=== PATIENT | female | born 1940 | race Asian ===

== ENCOUNTER 2019-07-20 19:27 | Inpatient (IN) | payer MEDICARE ==
[2019-07-20 20:59] LABS: Hematocrit 32.8 % (30.3-42.9); Hemoglobin 10.6 gm/dl (10.1-14.3); Mean Corpuscular HGB Conc 32 % (30-34); Mean Corpuscular Volume 108 fl (79-97); Platelet Count 100 K/mm3 (140-440); Red Blood Count 3.04 M/mm3 (3.65-5.03); Red Cell Distribution Width 15.6 % (13.2-15.2)
[2019-07-20 21:08] LABS: INR 1.05 (0.87-1.13)
[2019-07-20 21:14] LABS: Calcium 7.1 mg/dL (8.4-10.2)
[2019-07-20] MEDS ORDERED: SODIUM CHLORIDE 0.9% 100 ML IV PRN (21:23)
[2019-07-20] MEDS ORDERED: ACETAMINOPHEN 325 MG TAB PO PRN (21:42)
[2019-07-20] MEDS ORDERED: MAGNESIUM HYDROXIDE (MOM) ORAL LIQD UDC PO PRN (21:42)
[2019-07-20] MEDS ORDERED: DEXTROSE 50% IN WATER (25GM) 50 ML SYRINGE IV PRN (21:42)
[2019-07-20] MEDS ORDERED: ONDANSETRON 4 MG/2 ML INJ IV PRN (21:42)
[2019-07-20] MEDS: INSULIN LISPRO 100 UNIT/ML SUB-Q SCH (23:14)
[2019-07-21] MEDS ORDERED: SODIUM CHLORIDE 0.9% 250ML 250 ML IV ONE (03:43)
[2019-07-21 05:51] LABS: Basophils % (Auto) 0.7 % (0.0-1.8); Eosinophils # (Auto) 0.2 K/mm3 (0.0-0.4); Eosinophils % (Auto) 5.4 % (0.0-4.3); Hemoglobin 9.9 gm/dl (10.1-14.3); Lymphocytes # (Auto) 0.8 K/mm3 (1.2-5.4); Lymphocytes % (Auto) 22.6 % (13.4-35.0); Mean Corpuscular HGB Conc 33 % (30-34); Mean Corpuscular Volume 106 fl (79-97); Monocytes # (Auto) 0.5 K/mm3 (0.0-0.8); Monocytes % (Auto) 15.6 % (0.0-7.3); Red Blood Count 2.82 M/mm3 (3.65-5.03); Red Cell Distribution Width 15.7 % (13.2-15.2)
[2019-07-21 05:54] LABS: Platelet Count 87 K/mm3 (140-440)
[2019-07-21 05:58] LABS: INR 1.05 (0.87-1.13)
[2019-07-21 06:04] LABS: Calcium 6.7 mg/dL (8.4-10.2)
[2019-07-21] MEDS: HEPARIN 5,000 UNIT/1 ML VIAL SUB-Q SCH ×3 (06:10→22:01)
[2019-07-21] MEDS: LEVOTHYROXINE 100 MCG TAB PO SCH (06:55)
[2019-07-21] MEDS: INSULIN LISPRO 100 UNIT/ML SUB-Q SCH ×4 (07:30→22:54)
[2019-07-21] MEDS: QUEtiapine 25 MG TAB PO SCH ×2 (09:06→22:00)
[2019-07-21] MEDS: MIDODRINE 5 MG TAB PO SCH ×3 (09:06→16:00)
[2019-07-21 13:32] LABS: Hepatitis B Surface Antigen Non-Reactive (Negative); Hepatitis C Virus Antibody Non-Reactive (NonReactive)
[2019-07-21] MEDS: DONEPEZIL 5 MG TAB PO SCH (22:00)
[2019-07-22] MEDS: HEPARIN 5,000 UNIT/1 ML VIAL SUB-Q SCH ×4 (05:18→22:40)
[2019-07-22] MEDS: LEVOTHYROXINE 100 MCG TAB PO SCH (05:19)
[2019-07-22] MEDS: QUEtiapine 25 MG TAB PO SCH ×4 (05:22→22:40)
[2019-07-22] MEDS: DONEPEZIL 5 MG TAB PO SCH ×2 (06:47→22:39)
[2019-07-22] MEDS: INSULIN LISPRO 100 UNIT/ML SUB-Q SCH ×4 (09:37→22:22)
[2019-07-22] MEDS: MIDODRINE 5 MG TAB PO SCH ×3 (09:41→13:01)
[2019-07-23] MEDS: LEVOTHYROXINE 100 MCG TAB PO SCH (06:17)
[2019-07-23] MEDS: HEPARIN 5,000 UNIT/1 ML VIAL SUB-Q SCH ×3 (06:17→22:02)
[2019-07-23] MEDS: INSULIN LISPRO 100 UNIT/ML SUB-Q SCH ×3 (07:52→22:02)
[2019-07-23] MEDS: MIDODRINE 5 MG TAB PO SCH ×3 (08:48→17:10)
[2019-07-23] MEDS: QUEtiapine 25 MG TAB PO SCH ×2 (09:59→22:02)
[2019-07-23] MEDS: DONEPEZIL 5 MG TAB PO SCH (22:02)
[2019-07-24] MEDS: LEVOTHYROXINE 100 MCG TAB PO SCH (06:26)
[2019-07-24] MEDS: HEPARIN 5,000 UNIT/1 ML VIAL SUB-Q SCH ×2 (06:26→17:04)
[2019-07-24] MEDS: INSULIN LISPRO 100 UNIT/ML SUB-Q SCH ×3 (08:16→17:05)
[2019-07-24] MEDS: MIDODRINE 5 MG TAB PO SCH ×3 (09:39→17:04)
[2019-07-24] MEDS: QUEtiapine 25 MG TAB PO SCH (09:40)
[2019-07-24 16:35] VITALS: BP 123/64
== END 2019-07-24 17:00 | DRG 682 ==
LOC: ED 19:27 → IMCU 21:25 → 3A 07-22 10:23 → OBSVTOIN 07-22 10:58
PROVIDERS: ADMIT Internal Medicine Geriatric Medicine; ATTEND Internal Medicine
PROC: 5A1D70Z Performance of Urinary Filtration, Intermittent, Less than 6 Hours Per Day (ICD-10-PCS; principal; 2019-07-21)
PROC: 5A1D70Z Performance of Urinary Filtration, Intermittent, Less than 6 Hours Per Day (ICD-10-PCS; 2019-07-23)
DX: I12.0 Hypertensive chronic kidney disease with stage 5 chronic kidney disease or end stage renal disease (principal); N18.6 End stage renal disease; I95.9 Hypotension, unspecified; Z91.19 Patient's noncompliance with other medical treatment and regimen; Z88.0 Allergy status to penicillin; E11.22 Type 2 diabetes mellitus with diabetic chronic kidney disease; Z99.2 Dependence on renal dialysis; Z91.15 Patient's noncompliance with renal dialysis; Z79.4 Long term (current) use of insulin; F03.90 Unspecified dementia, unspecified severity, without behavioral disturbance, psychotic disturbance, mood disturbance, and anxiety; E11.21 Type 2 diabetes mellitus with diabetic nephropathy; Z88.6 Allergy status to analgesic agent; Z88.8 Allergy status to other drugs, medicaments and biological substances
CPT/HCPCS: 36415; 71045; 80048; 80074; 82550; 82962; 83735; 83880; 85025; 85027; 85610; 93005; G0378; J1644; J7030; J7040; J7050

== ENCOUNTER 2019-07-28 19:19 | Inpatient (IN) | payer MEDICARE ==
--- NOTE | 2019-07-28 19:48 | Emergency Department Report ---
ED Altered Mental Status HPI - General Chief Complaint: Medical Clearance Stated Complaint: EVALUATION Time Seen by Provider: 07/28/19 19:37 Source: EMS Mode of arrival: Stretcher Limitations: Other - History of Present Illness Initial Comments: Patient is 79 years old female with history of dementia, hypertension, diabetes and end-stage renal disease on hemodialysis. Patient brought from [facility] for evaluation of decreased responsiveness. EMS stated that initial call came as cardiac arrest and when they arrived at the facility, fpc staff were doing CPR on the patient however the patient is yelling at them to stop. EMS stated that patient became very agitated and combative. Upon arrival to the ER, patient is alert but disoriented in place and person. Patient just kept mumbling words however patient moving her extremities well. MD Complaint: altered mental status, confusion, decreased responsiveness - Related Data Home Medications Medication Instructions Recorded Confirmed Last Taken Ascorbic Acid 250 mg PO TID 07/20/19 07/20/19 Unknown Ativan 0.5 mg PO Q12HR 07/20/19 07/20/19 Unknown Levothyroxine 100 mcg PO ONCE 07/20/19 07/20/19 Unknown Melatonin 3 mg PO QHS 07/20/19 07/20/19 Unknown Midodrine 10 mg PO TID 07/20/19 07/20/19 Unknown Namenda Xr 5 mg PO ONCE 07/20/19 07/20/19 Unknown SEROquel 50 mg PO BID 07/20/19 07/20/19 Unknown Tylenol 325 mg PO Q6HR 07/20/19 07/20/19 Unknown donepeziL 5 mg PO DAILY 07/20/19 07/20/19 Unknown Allergies Allergy/AdvReac Type Severity Reaction Status Date / Time Penicillins Allergy Unknown Unknown Verified 07/20/19 21:49 Celecoxib Allergy Unknown Unknown Uncoded 07/20/19 21:52 Liptor Allergy Unknown Unknown Uncoded 07/20/19 21:51 ED Review of Systems ROS: Stated complaint: EVALUATION Other details as noted in HPI Comment: Unobtainable due to pts medical conditions ED Past Medical Hx - Past Medical History Hx Hypertension: Yes Hx Congestive Heart Failure: Yes Hx Diabetes: Yes Hx Dementia: Yes Additional medical history: ESRD Dialysis days on Thursday//Thursday. - Social History Smoking Status: Never Smoker - Medications Home Medications: Home Medications Medication Instructions Recorded Confirmed Last Taken Type Ascorbic Acid 250 mg PO TID 07/20/19 07/20/19 Unknown History Ativan 0.5 mg PO Q12HR 07/20/19 07/20/19 Unknown History Levothyroxine 100 mcg PO ONCE 07/20/19 07/20/19 Unknown History Melatonin 3 mg PO QHS 07/20/19 07/20/19 Unknown History Midodrine 10 mg PO TID 07/20/19 07/20/19 Unknown History Namenda Xr 5 mg PO ONCE 07/20/19 07/20/19 Unknown History SEROquel 50 mg PO BID 07/20/19 07/20/19 Unknown History Tylenol 325 mg PO Q6HR 07/20/19 07/20/19 Unknown History donepeziL 5 mg PO DAILY 07/20/19 07/20/19 Unknown History ED Physical Exam - General Limitations: Altered Mental Status, Other General appearance: alert, in no apparent distress - Head Head exam: Present: atraumatic, normocephalic, normal inspection - Eye Eye exam: Present: normal appearance - ENT ENT exam: Present: normal exam, normal orophraynx, mucous membranes moist - Neck Neck exam: Present: normal inspection, full ROM. Absent: tenderness, meni ngismus - Respiratory Respiratory exam: Present: normal lung sounds bilaterally - Cardiovascular Cardiovascular Exam: Present: regular rate, normal rhythm, normal heart sounds - GI/Abdominal GI/Abdominal exam: Present: soft, normal bowel sounds. Absent: distended, tenderness, guarding, rebound, rigid, organomegaly, bruit, pulsatile mass, hernia - Extremities Exam Extremities exam: Present: normal inspection, full ROM, normal capillary refill. Absent: calf tenderness - Back Exam Back exam: Present: normal inspection, full ROM. Absent: CVA tenderness (R), CVA tenderness (L) - Neurological Exam Neurological exam: Present: alert, altered, CN II-XII intact. Absent: motor sensory deficit - Psychiatric Psychiatric exam: Present: agitated, anxious - Skin Skin exam: Present: warm, intact, normal color ED Course Vital Signs 07/28/19 07/28/19 07/28/19 19:32 20:29 21:26 Temperature 97.9 F Pulse Rate 81 74 68 Respiratory 13 12 14 Rate Blood Pressure 117/66 97/45 82/50 [Right] O2 Sat by Pulse 99 97 100 Oximetry 07/28/19 21:58 Temperature Pulse Rate 65 Respiratory 12 Rate Blood Pressure 104/53 [Right] O2 Sat by Pulse 99 Oximetry - Lab Data Result diagrams: 07/29/19 14:36 07/29/19 14:36 Lab Results 07/28/19 07/28/19 07/28/19 Range/Units 19:45 19:45 19:45 WBC 3.9 L (4.5-11.0) K/mm3 RBC 2.42 L (3.65-5.03) M/mm3 Hgb 8.4 L (10.1-14.3) gm/dl Hct 25.9 L (30.3-42.9) % MCV 107 H (79-97) fl MCH 35 H (28-32) pg MCHC 32 (30-34) % RDW 15.0 (13.2-15.2) % Plt Count 133 L (140-440) K/mm3 Lymph % (Auto) 11.7 L (13.4-35.0) % [place] % (Auto) 10.5 H (0.0-7.3) % Eos % (Auto) 3.1 (0.0-4.3) % Baso % (Auto) 0.6 (0.0-1.8) % Lymph # 0.5 L (1.2-5.4) K/mm3 [place] # 0.4 (0.0-0.8) K/mm3 Eos # 0.1 (0.0-0.4) K/mm3 Baso # 0.0 (0.0-0.1) K/mm3 Seg Neutrophils % 74.1 H (40.0-70.0) % Seg Neutrophils # 2.9 (1.8-7.7) K/mm3 PT 13.6 (12.2-14.9) Sec. INR 1.06 (0.87-1.13) APTT 29.7 (24.2-36.6) Sec. Sodium 138 (137-145) mmol/L Potassium 3.7 (3.6-5.0) mmol/L Chloride 92.0 L (98-107) mmol/L Carbon Dioxide 24 (22-30) mmol/L Anion Gap 26 mmol/L BUN 39 H (7-17) mg/dL Creatinine 11.3 H (0.7-1.2) mg/dL Estimated GFR 3 ml/min BUN/Creatinine Ratio 3 % Glucose 148 H (65-100) mg/dL Lactic Acid (0.7-2.0) mmol/L Calcium 7.8 L (8.4-10.2) mg/dL Total Bilirubin (0.1-1.2) mg/dL Direct Bilirubin (0-0.2) mg/dL Indirect Bilirubin mg/dL AST (5-40) units/L ALT (7-56) units/L Alkaline Phosphatase (35-129) units/L Ammonia (25-60) umol/L Total Creatine Kinase 102 (30-135) units/L Troponin T 0.088 H (0.00-0.029) ng/mL Total Protein (6.3-8.2) g/dL Albumin (3.9-5) g/dL Albumin/Globulin Ratio % Triglycerides 151 H (2-149) mg/dL Cholesterol 172 (50-199) mg/dL LDL Cholesterol Direct 93 (50-130) mg/dL HDL Cholesterol 50 (40-59) mg/dL Cholesterol/HDL Ratio 3.44 % 07/28/19 07/28/19 07/28/19 Range/Units 19:45 19:45 19:45 WBC (4.5-11.0) K/mm3 RBC (3.65-5.03) M/mm3 Hgb (10.1-14.3) gm/dl Hct (30.3-42.9) % MCV (79-97) fl MCH (28-32) pg MCHC (30-34) % RDW (13.2-15.2) % Plt Count (140-440) K/mm3 Lymph % (Auto) (13.4-35.0) % [place] % (Auto) (0.0-7.3) % Eos % (Auto) (0.0-4.3) % Baso % (Auto) (0.0-1.8) % Lymph # (1.2-5.4) K/mm3 [place] # (0.0-0.8) K/mm3 Eos # (0.0-0.4) K/mm3 Baso # (0.0-0.1) K/mm3 Seg Neutrophils % (40.0-70.0) % Seg Neutrophils # (1.8-7.7) K/mm3 PT (12.2-14.9) Sec. INR (0.87-1.13) APTT (24.2-36.6) Sec. Sodium (137-145) mmol/L Potassium (3.6-5.0) mmol/L Chloride (98-107) mmol/L Carbon Dioxide (22-30) mmol/L Anion Gap mmol/L BUN (7-17) mg/dL Creatinine (0.7-1.2) mg/dL Estimated GFR ml/min BUN/Creatinine Ratio % Glucose (65-100) mg/dL Lactic Acid 2.80 H* (0.7-2.0) mmol/L Calcium (8.4-10.2) mg/dL Total Bilirubin 0.70 (0.1-1.2) mg/dL Direct Bilirubin 0.3 H (0-0.2) mg/dL Indirect Bilirubin 0.4 mg/dL AST 19 (5-40) units/L ALT 11 (7-56) units/L Alkaline Phosphatase 69 (35-129) units/L Ammonia 22.0 L (25-60) umol/L Total Creatine Kinase (30-135) units/L Troponin T (0.00-0.029) ng/mL Total Protein 7.2 (6.3-8.2) g/dL Albumin 3.8 L (3.9-5) g/dL Albumin/Globulin Ratio 1.1 % Triglycerides (2-149) mg/dL Cholesterol (50-199) mg/dL LDL Cholesterol Direct (50-130) mg/dL HDL Cholesterol (40-59) mg/dL Cholesterol/HDL Ratio % - Radiology Data Radiology results: report reviewed - Medical Decision Making Patient is 79 years old female with history of dementia, hypertension, diabetes and end-stage renal disease on hemodialysis. Patient brought from [facility] for evaluation of decreased responsiveness. EMS stated that initial call came as cardiac arrest and when they arrived at the facility, fpc staff were doing CPR on the patient however the patient is yelling at them to stop. EMS stated that patient became very agitated and combative. Upon arrival to the ER, patient is alert but disoriented in place and person. Patient just kept mumbling words however patient moving her extremities well. Patient is sleeping comfortably now and in no acute distress. Patient received 500 mL of normal saline bolus. Labs reviewed and showed a potassium of 3.7. I discussed the patient with Dr. Murry, programmer numerical control on-call, he agreed to be consulted and the patient. I discussed the patient with Dr. Washington, he agreed to admit the patient to medical service for further management. Critical Care Time: Yes Critical care time in (mins) excluding proc time.: 30 Critical care attestation.: If time is entered above; I have spent that time in minutes in the direct care of this critically ill patient, excluding procedure time. ED Disposition Clinical Impression: Hypotension, Missed dialysis, Dementia, Altered mental status Disposition: DC-09 OP ADMIT IP TO THIS HOSP Is pt being admited?: Yes Condition: Stable
[2019-07-28] MEDS ORDERED: LORazepam 2 MG/ML VIAL ONE (20:04)
[2019-07-28 20:19] LABS: Basophils % (Auto) 0.6 % (0.0-1.8); Eosinophils # (Auto) 0.1 K/mm3 (0.0-0.4); Eosinophils % (Auto) 3.1 % (0.0-4.3); Hematocrit 25.9 % (30.3-42.9); Hemoglobin 8.4 gm/dl (10.1-14.3); Lymphocytes # (Auto) 0.5 K/mm3 (1.2-5.4); Lymphocytes % (Auto) 11.7 % (13.4-35.0); Mean Corpuscular HGB Conc 32 % (30-34); Mean Corpuscular Volume 107 fl (79-97); Monocytes # (Auto) 0.4 K/mm3 (0.0-0.8); Monocytes % (Auto) 10.5 % (0.0-7.3); Platelet Count 133 K/mm3 (140-440); Red Blood Count 2.42 M/mm3 (3.65-5.03)
[2019-07-28 20:26] LABS: INR 1.06 (0.87-1.13)
[2019-07-28 20:27] LABS: Partial Thromboplastin Time 29.7 Sec. (24.2-36.6)
[2019-07-28 20:36] LABS: Albumin 3.8 g/dL (3.9-5); Bilirubin,Direct 0.3 mg/dL (0-0.2)
[2019-07-28 20:38] LABS: Calcium 7.8 mg/dL (8.4-10.2)
[2019-07-28] MEDS ORDERED: LORazepam 2 MG/ML VIAL IM ONE (20:51)
[2019-07-28] MEDS ORDERED: SODIUM CHLORIDE 0.9% 500 ML 500 ML IV ONE (20:51)
[2019-07-28 20:53] LABS: Chol/HDL Ratio 3.44 %
--- NOTE | 2019-07-28 21:24 | XRay Report ---
CHEST 1 VIEW INDICATION / CLINICAL INFORMATION: AMS. COMPARISON: 07/20/2019 FINDINGS: SUPPORT DEVICES: None. HEART / MEDIASTINUM: Unchanged LUNGS / PLEURA: There is mild increase in interstitial markings bilaterally. No pneumothorax. ADDITIONAL FINDINGS: No significant additional findings. IMPRESSION: 1. No significant change. Signer Name: Crow You MD Signed: 07/28/2019 9:19 PM Workstation Name: [email or web address]
[2019-07-28] MEDS ORDERED: MAGNESIUM HYDROXIDE (MOM) ORAL LIQD UDC PO PRN (22:11)
[2019-07-28] MEDS ORDERED: DEXTROSE 50% IN WATER (25GM) 50 ML SYRINGE IV PRN (22:11)
[2019-07-28] MEDS ORDERED: ONDANSETRON 4 MG/2 ML INJ IV PRN (22:11)
[2019-07-28] MEDS ORDERED: ACETAMINOPHEN 325 MG TAB PO PRN (22:11)
--- NOTE | 2019-07-28 22:22 | History and Physical Report ---
History of Present Illness Date of examination: 07/28/19 Date of admission: 07/28/19 21:38 Chief complaint: Altered Mental Status History of present illness: 79-year-old -[place] female with known history of hypertension, dementia, diabetes mellitus and end-stage renal disease on hemodialysis on Tuesdays, and Saturdays. She is a resident of [facility] was sent to the emergency room today for evaluation of her decreased responsiveness. CPR was said to have been initiated on patient because they thought she was in cardiac arrest but upon arrival of EMS patient was found to be yelling at the [facility] staff and CPR was discontinued. Patient was said to be agitated, combative and disoriented. Patient has not had a dialysis in about a week and it is unclear why patient has not had dialysis in 1 week. She presented with a similar episode about a week ago. Patient discussed with the abatement worker and she will be scheduled for dialysis in the a.m. Past History Past Medical History: diabetes, hypertension, other (Dementia) Past Surgical History: Other (Left upper extremity AV fistula) Social history: no significant social history Family history: no significant family history Medications and Allergies Allergies Allergy/AdvReac Type Severity Reaction Status Date / Time Penicillins Allergy Unknown Unknown Verified 07/20/19 21:49 Celecoxib Allergy Unknown Unknown Uncoded 07/20/19 21:52 Liptor Allergy Unknown Unknown Uncoded 07/20/19 21:51 Home Medications Medication Instructions Recorded Confirmed Last Taken Type Ascorbic Acid 250 mg PO TID 07/20/19 07/20/19 Unknown History Ativan 0.5 mg PO Q12HR 07/20/19 07/20/19 Unknown History Levothyroxine 100 mcg PO ONCE 07/20/19 07/20/19 Unknown History Melatonin 3 mg PO QHS 07/20/19 07/20/19 Unknown History Midodrine 10 mg PO TID 07/20/19 07/20/19 Unknown History Namenda Xr 5 mg PO ONCE 07/20/19 07/20/19 Unknown History SEROquel 50 mg PO BID 07/20/19 07/20/19 Unknown History Tylenol 325 mg PO Q6HR 07/20/19 07/20/19 Unknown History donepeziL 5 mg PO DAILY 07/20/19 07/20/19 Unknown History Active Meds: Active Medications Acetaminophen (Tylenol) 650 mg PO Q4H PRN PRN Reason: Pain MILD(1-3)/Fever >100.5/DE LA PAZ Dextrose (D50w (25gm) Syringe) 0 ml IV Q30MIN PRN; Protocol PRN Reason: Hypoglycemia Insulin Human Lispro (Humalog) 0 unit SUB-Q ACHS FAUZIA; Protocol Magnesium Hydroxide (Milk Of Magnesia) 30 ml PO Q4H PRN PRN Reason: Constipation Ondansetron HCl (Zofran) 4 mg IV Q8H PRN PRN Reason: Nausea And Vomiting Sodium Chloride (Sodium Chloride Flush Syringe 10 Ml) 10 ml IV BID FAUZIA Sodium Chloride (Sodium Chloride Flush Syringe 10 Ml) 10 ml IV PRN PRN PRN Reason: LINE FLUSH Review of Systems ROS unobtainable: due to mental status Exam - Constitutional Vitals: Temp Pulse Resp BP Pulse Ox 97.9 F 65 12 104/53 99 07/28/19 19:32 07/28/19 21:58 07/28/19 21:58 07/28/19 21:58 07/28/19 21:58 General appearance: Present: no acute distress, well-nourished - EENT Eyes: Present: PERRL, EOM intact. Absent: scleral icterus ENT: hearing intact, clear oral mucosa, dentition normal - Neck Neck: Present: supple, normal ROM - Respiratory Respiratory effort: normal Respiratory: bilateral: CTA - Cardiovascular Rhythm: regular Heart Sounds: Present: S1 & S2 - Extremities Extremities: no ischemia, pulses intact, pulses symmetrical, No edema, Full ROM Peripheral Pulses: within normal limits - Abdominal General gastrointestinal: Present: soft, non-tender, non-distended, normal bowel sounds - Integumentary Integumentary: Present: clear, warm, dry. Absent: jaundice, rash - Musculoskeletal Musculoskeletal: strength equal bilaterally - Psychiatric Psychiatric: appropriate mood/affect, cooperative - Neurologic Neurologic: CNII-XII intact, moves all extremities HEART Score - HEART Score Troponin: Troponin T 0.088 ng/mL (0.00-0.029) H 07/28/19 19:45 Results - Labs CBC & Chem 7: 07/28/19 19:45 07/28/19 19:45 Labs: Abnormal lab results 07/28/19 07/28/19 07/28/19 Range/Units 19:45 19:45 19:45 WBC 3.9 L (4.5-11.0) K/mm3 RBC 2.42 L (3.65-5.03) M/mm3 Hgb 8.4 L (10.1-14.3) gm/dl Hct 25.9 L (30.3-42.9) % MCV 107 H (79-97) fl MCH 35 H (28-32) pg Plt Count 133 L (140-440) K/mm3 Lymph % (Auto) 11.7 L (13.4-35.0) % [place] % (Auto) 10.5 H (0.0-7.3) % Lymph # 0.5 L (1.2-5.4) K/mm3 Seg Neutrophils % 74.1 H (40.0-70.0) % Chloride 92.0 L (98-107) mmol/L BUN 39 H (7-17) mg/dL Creatinine 11.3 H (0.7-1.2) mg/dL Glucose 148 H (65-100) mg/dL Lactic Acid 2.80 H* (0.7-2.0) mmol/L Calcium 7.8 L (8.4-10.2) mg/dL Direct Bilirubin (0-0.2) mg/dL Ammonia (25-60) umol/L Troponin T 0.088 H (0.00-0.029) ng/mL Albumin (3.9-5) g/dL Triglycerides 151 H (2-149) mg/dL 07/28/19 07/28/19 Range/Units 19:45 19:45 WBC (4.5-11.0) K/mm3 RBC (3.65-5.03) M/mm3 Hgb (10.1-14.3) gm/dl Hct (30.3-42.9) % MCV (79-97) fl MCH (28-32) pg Plt Count (140-440) K/mm3 Lymph % (Auto) (13.4-35.0) % [place] % (Auto) (0.0-7.3) % Lymph # (1.2-5.4) K/mm3 Seg Neutrophils % (40.0-70.0) % Chloride (98-107) mmol/L BUN (7-17) mg/dL Creatinine (0.7-1.2) mg/dL Glucose (65-100) mg/dL Lactic Acid (0.7-2.0) mmol/L Calcium (8.4-10.2) mg/dL Direct Bilirubin 0.3 H (0-0.2) mg/dL Ammonia 22.0 L (25-60) umol/L Troponin T (0.00-0.029) ng/mL Albumin 3.8 L (3.9-5) g/dL Triglycerides (2-149) mg/dL Assessment and Plan - Patient Problems (1) ESRD (end stage renal disease) Current Visit: No Status: Acute Plan to address problem: Patient has missed her dialysis for about a week. She gets dialysis on Tuesdays, and Saturdays. Patient will be evaluated for dialysis in the a.m. consulted. (2) Altered mental status Current Visit: Yes Status: Acute Plan to address problem: May be multifactorial. She has known history of dementia and has not had dialysis in about a week. We will continue to monitor mental status. Patient is scheduled for dialysis in the a.m. (3) Dementia Current Visit: Yes Status: Acute Plan to address problem: We will continue patient's routine home medications. Will monitor mental status. (4) Hypotension Current Visit: Yes Status: Acute Plan to address problem: Patient received IV fluid in the emergency room with significant improvement in blood pressure. (5) Diabetes mellitus Current Visit: No Status: Acute Qualifiers: Chronic kidney disease stage: on chronic dialysis Plan to address problem: We will monitor Accu-Cheks and resume routine home medications. (6) DVT prophylaxis Current Visit: No Status: Acute Plan to address problem: Patient placed on subcutaneous heparin. (7) Full code status Current Visit: No Status: Acute
[2019-07-29] MEDS: INSULIN LISPRO 100 UNIT/ML SUB-Q SCH ×4 (08:00→22:29)
--- NOTE | 2019-07-29 08:05 | Consultation ---
History of Present Illness - Reason for Consult Consult date: 07/29/19 end stage renal disease - History of Present Illness The patient is an 79 YO female with history significant for DM type 2, Hypotension on Midodrine, Hypothyroid, Dementia and ESRD on hemodialysis (TTS schedule) reportedly dialyzed at [facility] in [place], who presented to [facility] ED 07/27 after she has missed her dialysis for about a week. Patient is a very poor historian and unable to obtain any history from her at this time. Not accompanied by any family member. She resides in a snf and it is unclear why patient missed her dialysis. CXR in ER showed mild increase in interstitial markings. BP this morning is 90/35. Nephrology was consulted for management of ESRD. Past History Past Medical History: diabetes, dialysis, ESRD, hypothyroidism, other (Hypotension, Dementia) Past Surgical History: Other (Left upper extremity AV fistula) Social history: no significant social history Family history: no significant family history Medications and Allergies Allergies Allergy/AdvReac Type Severity Reaction Status Date / Time Penicillins Allergy Unknown Unknown Verified 07/20/19 21:49 Celecoxib Allergy Unknown Unknown Uncoded 07/20/19 21:52 Liptor Allergy Unknown Unknown Uncoded 07/20/19 21:51 Home Medications Medication Instructions Recorded Confirmed Last Taken Type Ascorbic Acid 250 mg PO TID 07/20/19 07/20/19 Unknown History Ativan 0.5 mg PO Q12HR 07/20/19 07/20/19 Unknown History Levothyroxine 100 mcg PO ONCE 07/20/19 07/20/19 Unknown History Melatonin 3 mg PO QHS 07/20/19 07/20/19 Unknown History Midodrine 10 mg PO TID 07/20/19 07/20/19 Unknown History Namenda Xr 5 mg PO ONCE 07/20/19 07/20/19 Unknown History SEROquel 50 mg PO BID 07/20/19 07/20/19 Unknown History Tylenol 325 mg PO Q6HR 07/20/19 07/20/19 Unknown History donepeziL 5 mg PO DAILY 07/20/19 07/20/19 Unknown History Active Meds: Active Medications Acetaminophen (Tylenol) 650 mg PO Q4H PRN PRN Reason: Pain MILD(1-3)/Fever >100.5/DE LA PAZ Dextrose (D50w (25gm) Syringe) 0 ml IV Q30MIN PRN; Protocol PRN Reason: Hypoglycemia Heparin Sodium (Porcine) (Heparin) 5,000 unit SUB-Q Q8HR FAUZIA Insulin Human Lispro (Humalog) 0 unit SUB-Q ACHS FAUZIA; Protocol Magnesium Hydroxide (Milk Of Magnesia) 30 ml PO Q4H PRN PRN Reason: Constipation Ondansetron HCl (Zofran) 4 mg IV Q8H PRN PRN Reason: Nausea And Vomiting Sodium Chloride (Sodium Chloride Flush Syringe 10 Ml) 10 ml IV BID FAUZIA Sodium Chloride (Sodium Chloride Flush Syringe 10 Ml) 10 ml IV PRN PRN PRN Reason: LINE FLUSH Review of Systems ROS unobtainable: due to mental status Exam - Vital Signs Vital signs: Vital Signs Temp Pulse Resp BP Pulse Ox 97.9 F 81 11 L 117/66 99 07/28/19 19:32 07/28/19 19:32 07/28/19 19:32 07/28/19 19:32 07/28/19 19:32 - General Appearance General appearance: well-developed, appears stated age, other (no distress) EENT: ATNC, PERRL, mucous membranes dry Neck: Present: neck supple, trachea midline Respiratory: Clear to Ascultation Heart: regular, S1S2, no murmurs Gastrointestinal: Present: normoactive bowel sounds. Absent: tenderness, distended Integumentary: no rash, warm and dry Neurologic: other (moving extremities, not conversing, not following any command) Musculoskeletal: Present: other (no edema, L arm AVF) Results - Lab Results 07/29/19 14:36 07/29/19 14:36 Most recent lab results Calcium 7.8 mg/dL (8.4-10.2) L 07/28/19 19:45 Assessment and Plan 1. End stage renal disease: Patient reportedly gets hemodialysis at [facility], [facility] schedule. Missed HD due to medical non-compliance. Meds dosage based on GFR. BP is low, hold off HD today. 2. FEN: Monitor lytes and volume status. 3. Anemia, POA: Epogen with HD as needed. 4. Hypotension: Resume Midodrine. Monitor BP closely. 5. DM type 2. 6. Dementia. 7. Medical noncompliance.
[2019-07-29] MEDS: HEPARIN 5,000 UNIT/1 ML VIAL SUB-Q SCH ×2 (13:13→22:28)
[2019-07-29] MEDS ORDERED: SODIUM CHLORIDE 0.9% 500 ML 500 ML IV ONE (13:38)
--- NOTE | 2019-07-29 14:10 | Progress Note ---
Assessment and Plan --AMS/syncope likely Secondary to hypotension and missing HD Patient now alert and awake -- ESRD (end stage renal disease) Patient has missed her dialysis for about a week. HD per schedule , margarine maker following, HD TTS --Hypotension: chorinc Continue Midodrin, hold antihypertensives --Noncompliance with hemodialysis, likely due to dementia --History of hypertension; Currently hypotensive , Hold antihypertensives --Dementia; Continue memantine and Aricept Supportive care --Type II diabetes mellitus. Accu-Chek sliding scale coverage ADA diet Insulin as needed --DVT prophylaxis Patient placed on subcutaneous heparin. -- Full code status DC planning per case management; Discharged back to SNF when cleared by nep hrology Possible discharge in 1 to 2 days if stable 07/28: mental status improved, plan for Hd tomorrow per renal. called next if kin no answer Subjective Date of service: 07/29/19 Interval history: Patient seen and examined Denies any chest pain or SOB Plan for HD to cardenas Objective - Exam Narrative Exam: General appearance: well-developed, appears stated age, other (no distress) EENT: ATNC, PERRL, mucous membranes dry Neck: Present: neck supple, trachea midline Respiratory: Clear to Ascultation Heart: regular, S1S2, no murmurs Gastrointestinal: Present: normoactive bowel sounds. Absent: tenderness, distended Integumentary: no rash, warm and dry Neurologic: other (moving extremities, not conversing, not following any command) Musculoskeletal: Present: other (no edema, L arm AVF) - Constitutional Vitals: Vital Signs - 12hr 07/29/19 07/29/19 05:25 12:16 Temperature 97.7 F 97.0 F L Pulse Rate 67 73 Respiratory 16 20 Rate Blood Pressure 90/35 113/57 O2 Sat by Pulse 92 100 Oximetry - Labs CBC & Chem 7: 07/29/19 14:36 07/29/19 14:36 Labs: Abnormal lab results 07/28/19 07/28/19 07/28/19 Range/Units 19:45 19:45 19:45 WBC 3.9 L (4.5-11.0) K/mm3 RBC 2.42 L (3.65-5.03) M/mm3 Hgb 8.4 L (10.1-14.3) gm/dl Hct 25.9 L (30.3-42.9) % MCV 107 H (79-97) fl MCH 35 H (28-32) pg Plt Count 133 L (140-440) K/mm3 Lymph % (Auto) 11.7 L (13.4-35.0) % [place] % (Auto) 10.5 H (0.0-7.3) % Lymph # 0.5 L (1.2-5.4) K/mm3 Seg Neutrophils % 74.1 H (40.0-70.0) % Chloride 92.0 L (98-107) mmol/L BUN 39 H (7-17) mg/dL Creatinine 11.3 H (0.7-1.2) mg/dL Glucose 148 H (65-100) mg/dL POC Glucose (70-105) Lactic Acid 2.80 H* (0.7-2.0) mmol/L Calcium 7.8 L (8.4-10.2) mg/dL Direct Bilirubin (0-0.2) mg/dL Ammonia (25-60) umol/L Troponin T 0.088 H (0.00-0.029) ng/mL Albumin (3.9-5) g/dL Triglycerides 151 H (2-149) mg/dL 07/28/19 07/28/19 07/29/19 Range/Units 19:45 19:45 10:48 WBC (4.5-11.0) K/mm3 RBC (3.65-5.03) M/mm3 Hgb (10.1-14.3) gm/dl Hct (30.3-42.9) % MCV (79-97) fl MCH (28-32) pg Plt Count (140-440) K/mm3 Lymph % (Auto) (13.4-35.0) % [place] % (Auto) (0.0-7.3) % Lymph # (1.2-5.4) K/mm3 Seg Neutrophils % (40.0-70.0) % Chloride (98-107) mmol/L BUN (7-17) mg/dL Creatinine (0.7-1.2) mg/dL Glucose (65-100) mg/dL POC Glucose 248 H (70-105) Lactic Acid (0.7-2.0) mmol/L Calcium (8.4-10.2) mg/dL Direct Bilirubin 0.3 H (0-0.2) mg/dL Ammonia 22.0 L (25-60) umol/L Troponin T (0.00-0.029) ng/mL Albumin 3.8 L (3.9-5) g/dL Triglycerides (2-149) mg/dL HEART Score - HEART Score Troponin: Troponin T 0.088 ng/mL (0.00-0.029) H 07/28/19 19:45
[2019-07-29 15:23] LABS: Basophils % (Auto) 0.9 % (0.0-1.8); Eosinophils # (Auto) 0.1 K/mm3 (0.0-0.4); Eosinophils % (Auto) 2.7 % (0.0-4.3); Hematocrit 29.5 % (30.3-42.9); Hemoglobin 9.5 gm/dl (10.1-14.3); Lymphocytes # (Auto) 0.5 K/mm3 (1.2-5.4); Lymphocytes % (Auto) 12.8 % (13.4-35.0); Mean Corpuscular HGB Conc 32 % (30-34); Mean Corpuscular Volume 111 fl (79-97); Monocytes # (Auto) 0.4 K/mm3 (0.0-0.8); Monocytes % (Auto) 9.5 % (0.0-7.3); Platelet Count 145 K/mm3 (140-440); Red Blood Count 2.67 M/mm3 (3.65-5.03); Red Cell Distribution Width 15.8 % (13.2-15.2)
[2019-07-29 15:33] LABS: INR 1.07 (0.87-1.13)
[2019-07-29 15:36] LABS: Calcium 7.6 mg/dL (8.4-10.2)
[2019-07-30] MEDS: HEPARIN 5,000 UNIT/1 ML VIAL SUB-Q SCH ×3 (05:50→21:53)
[2019-07-30] MEDS: INSULIN LISPRO 100 UNIT/ML SUB-Q SCH ×4 (07:32→21:52)
[2019-07-30] MEDS ORDERED: MIDODRINE 5 MG TAB PO SCH ×2 (08:00→12:00)
[2019-07-30] MEDS ORDERED: EPOETIN ALFA 10,000 UNIT/1 ML INJ SUB-Q PRN (08:27)
[2019-07-30] MEDS ORDERED: SODIUM CHLORIDE 0.9% 100 ML IV PRN (08:27)
--- NOTE | 2019-07-30 08:27 | Progress Note ---
Assessment and Plan 1. End stage renal disease: Patient reportedly gets hemodialysis at [facility], [facility] schedule. Missed HD due to medical non-compliance. Meds dosage based on GFR. HD held 07/28 due to low BP. Hemodialysis: 07/29. 2. FEN: Monitor lytes and volume status. 3. Anemia, POA: Epogen with HD as needed. 4. Hypotension: Midodrine. Monitor BP closely. 5. DM type 2. 6. Dementia. 7. Medical noncompliance. Objective: Patient was seen and examined at the bedside. Doing ok. RN at the bedside. Examination: General appearance: well-developed, appears stated age, no distress HEENT: atraumatic Neck: neck supple, trachea midline Respiratory: ctab Heart: rregular, normal heart rate, S1S2, no murmur Gastrointestinal: soft, bowel sounds present, not tender Integumentary: no rash, warm and dry Neurologic: confused, able to walk Ext: no edema Hemodialysis access: L arm AVF Subjective Date of service: 07/30/19 Objective - Vital Signs Vital signs: Vital Signs - 12hr 07/29/19 22:00 Pulse Rate [ 89 Left Apical] Respiratory 20 Rate O2 Sat by Pulse 97 Oximetry - Lab 07/29/19 14:36 07/29/19 14:36 Most recent lab results Calcium 7.6 mg/dL (8.4-10.2) L 07/29/19 14:36 Medications & Allergies - Medications Allergies/Adverse Reactions: Allergies Penicillins Allergy (Unknown, Verified 07/20/19 21:49) Unknown Celecoxib Allergy (Unknown, Uncoded 07/20/19 21:52) Unknown Liptor Allergy (Unknown, Uncoded 07/20/19 21:51) Unknown Home Medications: Home Medications Medication Instructions Recorded Confirmed Last Taken Type Ascorbic Acid 250 mg PO TID 07/20/19 07/20/19 Unknown History Ativan 0.5 mg PO Q12HR 07/20/19 07/20/19 Unknown History Levothyroxine 100 mcg PO ONCE 07/20/19 07/20/19 Unknown History Melatonin 3 mg PO QHS 07/20/19 07/20/19 Unknown History Midodrine 10 mg PO TID 07/20/19 07/20/19 Unknown History Namenda Xr 5 mg PO ONCE 07/20/19 07/20/19 Unknown History SEROquel 50 mg PO BID 07/20/19 07/20/19 Unknown History Tylenol 325 mg PO Q6HR 07/20/19 07/20/19 Unknown History donepeziL 5 mg PO DAILY 07/20/19 07/20/19 Unknown History Active Medications: Generic Name Dose Route Start Last Admin Trade Name Freq PRN Reason Stop Dose Admin Acetaminophen 650 mg 07/28/19 22:11 Tylenol PO Q4H PRN Pain MILD(1-3)/Fever >100.5/DE LA PAZ Dextrose 0 ml 07/28/19 22:11 D50w (25gm) Syringe IV Q30MIN PRN Hypoglycemia Protocol Heparin Sodium (Porcine) 5,000 unit 07/29/19 14:00 07/30/19 05:50 Heparin SUB-Q Not Given Q8HR [facility] Insulin Human Lispro 0 unit 07/29/19 07:30 07/29/19 22:29 Humalog SUB-Q Not Given ACHS [facility] Protocol Magnesium Hydroxide 30 ml 07/28/19 22:11 Milk Of Magnesia PO Q4H PRN Constipation Midodrine 5 mg 07/30/19 08:00 Proamatine PO 0800,1200,1600 [facility] Ondansetron HCl 4 mg 07/28/19 22:11 Zofran IV Q8H PRN Nausea And Vomiting Sodium Chloride 10 ml 07/29/19 10:00 07/29/19 22:29 Sodium Chloride Flush Syringe 10 Ml IV Not Given BID FAUZIA Sodium Chloride 10 ml 07/28/19 22:11 Sodium Chloride Flush Syringe 10 Ml IV PRN PRN LINE FLUSH
[2019-07-30] MEDS ORDERED: DONEPEZIL 5 MG PO SCH (12:00)
[2019-07-30] MEDS ORDERED: NAMENDA 5 MG PO SCH (12:00)
[2019-07-30] MEDS ORDERED: ASCORBIC ACID 250 MG PO SCH (14:00)
[2019-07-30] MEDS ORDERED: MIDODRINE 10 MG PO SCH (14:00)
--- NOTE | 2019-07-30 14:21 | Progress Note ---
Assessment and Plan --AMS/syncope likely Secondary to hypotension and missing HD Patient now alert and awake -- ESRD (end stage renal disease) Patient has missed her dialysis for about a week. HD per schedule , director of managed care following, HD TTS --Hypotension: chorinc Continue Midodrin, hold antihypertensives --Noncompliance with hemodialysis, likely due to dementia --History of hypertension; Currently hypotensive , Hold antihypertensives --Dementia; Continue memantine and Aricept Supportive care --Type II diabetes mellitus. Accu-Chek sliding scale coverage ADA diet Insulin as needed --DVT prophylaxis Patient placed on subcutaneous heparin. -- Full code status DC planning per case management; Discharged back to SNF when cleared by nep hrology Possible discharge in 1 to 2 days if stable 07/28: mental status improved, plan for Hd tomorrow per renal. called next if kin no answer 07/29: patient refusing meds, removed tele monitor. discussed with daughter about hospice, she wants to consider the option. Consulted hospice - will cont to follow. Plan for Hd today. Subjective Date of service: 07/30/19 Interval history: Patient seen and examined Denies any chest pain or SOB Plan for HD today, refused any medications Removed remote telemetry Objective - Exam Narrative Exam: General appearance: well-developed, appears stated age, other (no distress) EENT: ATNC, PERRL, mucous membranes dry Neck: Present: neck supple, trachea midline Respiratory: Clear to Ascultation Heart: regular, S1S2, no murmurs Gastrointestinal: Present: normoactive bowel sounds. Absent: tenderness, distended Integumentary: no rash, warm and dry Neurologic: other (moving extremities, not conversing, not following any command) Musculoskeletal: Present: other (no edema, L arm AVF) - Constitutional Vitals: Vital Signs - 12hr 07/30/19 13:00 Temperature 97.7 F Pulse Rate 79 Respiratory 18 Rate Blood Pressure 100/56 O2 Sat by Pulse 100 Oximetry - Labs CBC & Chem 7: 07/29/19 14:36 07/29/19 14:36 Labs: Abnormal lab results 07/29/19 07/29/19 Range/Units 14:36 14:36 WBC 4.2 L (4.5-11.0) K/mm3 RBC 2.67 L (3.65-5.03) M/mm3 Hgb 9.5 L (10.1-14.3) gm/dl Hct 29.5 L (30.3-42.9) % MCV 111 H (79-97) fl MCH 36 H (28-32) pg RDW 15.8 H (13.2-15.2) % Lymph % (Auto) 12.8 L (13.4-35.0) % [place] % (Auto) 9.5 H (0.0-7.3) % Lymph # 0.5 L (1.2-5.4) K/mm3 Seg Neutrophils % 74.1 H (40.0-70.0) % Sodium 136 L (137-145) mmol/L Chloride 93.5 L (98-107) mmol/L Carbon Dioxide 20 L (22-30) mmol/L BUN 41 H (7-17) mg/dL Creatinine 11.9 H (0.7-1.2) mg/dL Glucose 116 H (65-100) mg/dL Calcium 7.6 L (8.4-10.2) mg/dL HEART Score - HEART Score Troponin: Troponin T 0.088 ng/mL (0.00-0.029) H 07/28/19 19:45
[2019-07-30] MEDS ORDERED: EPOETIN ALFA 10,000 UNIT/1 ML INJ ONE (18:17)
[2019-07-30] MEDS: DONEPEZIL 5 MG TAB PO SCH (18:39)
[2019-07-30] MEDS: MEMANTINE 5 MG TAB PO SCH (18:40)
[2019-07-30] MEDS: ASCORBIC ACID 250 MG TAB PO SCH ×3 (18:40→21:26)
[2019-07-30] MEDS: MIDODRINE 5 MG TAB PO SCH (18:40)
[2019-07-30] MEDS ORDERED: MELATONIN 3 MG PO SCH (22:00)
[2019-07-30] MEDS ORDERED: MELATONIN 5 MG TAB PO SCH (22:00)
[2019-07-31] MEDS ORDERED: LEVOTHYROXINE 100 MCG TAB PO SCH (06:00)
[2019-07-31] MEDS: HEPARIN 5,000 UNIT/1 ML VIAL SUB-Q SCH (06:16)
--- NOTE | 2019-07-31 07:46 | Progress Note ---
Assessment and Plan 1. End stage renal disease: Patient reportedly gets hemodialysis at [facility], [facility] schedule. Missed HD due to medical non-compliance. Meds dosage based on GFR. HD held 07/28 due to low BP. Patient refused hemodialysis 07/30. 2. FEN: Monitor lytes and volume status. 3. Anemia, POA: Monitor. 4. Hypotension: Midodrine. Monitor BP closely. 5. DM type 2. 6. Dementia. 7. Medical noncompliance. Objective: Patient was seen and examined at the bedside. Tiago still refusing dialysis. Per RN she is also refusing her meds. Examination: General appearance: well-developed, appears stated age, no distress HEENT: atraumatic Neck: neck supple, trachea midline Respiratory: ctab Heart: rregular, normal heart rate, S1S2, no murmur Gastrointestinal: soft, bowel sounds present, not tender Integumentary: no rash, warm and dry Neurologic: confused, able to move extremities Ext: no edema Hemodialysis access: L arm AVF Subjective Date of service: 07/31/19 Objective - Vital Signs Vital signs: Vital Signs - 12hr 07/30/19 22:14 Temperature 97.7 F Pulse Rate 101 H Respiratory 16 Rate Blood Pressure 91/39 O2 Sat by Pulse 96 Oximetry - Lab 07/29/19 14:36 07/29/19 14:36 Most recent lab results Calcium 7.6 mg/dL (8.4-10.2) L 07/29/19 14:36 Medications & Allergies - Medications Allergies/Adverse Reactions: Allergies Penicillins Allergy (Unknown, Verified 07/20/19 21:49) Unknown Celecoxib Allergy (Unknown, Uncoded 07/20/19 21:52) Unknown Liptor Allergy (Unknown, Uncoded 07/20/19 21:51) Unknown Home Medications: Home Medications Medication Instructions Recorded Confirmed Last Taken Type Ascorbic Acid 250 mg PO TID 07/20/19 07/20/19 Unknown History Ativan 0.5 mg PO Q12HR 07/20/19 07/20/19 Unknown History Levothyroxine 100 mcg PO ONCE 07/20/19 07/20/19 Unknown History Melatonin 3 mg PO QHS 07/20/19 07/20/19 Unknown History Midodrine 10 mg PO TID 07/20/19 07/20/19 Unknown History Namenda Xr 5 mg PO ONCE 07/20/19 07/20/19 Unknown History SEROquel 50 mg PO BID 07/20/19 07/20/19 Unknown History Tylenol 325 mg PO Q6HR 07/20/19 07/20/19 Unknown History donepeziL 5 mg PO DAILY 07/20/19 07/20/19 Unknown History Active Medications: Generic Name Dose Route Start Last Admin Trade Name Freq PRN Reason Stop Dose Admin Acetaminophen 650 mg 07/28/19 22:11 Tylenol PO Q4H PRN Pain MILD(1-3)/Fever >100.5/DE LA PAZ Ascorbic Acid 250 mg 07/30/19 14:00 07/30/19 21:26 Vitamin C PO Not Given TID [facility] Dextrose 0 ml 07/28/19 22:11 D50w (25gm) Syringe IV Q30MIN PRN Hypoglycemia Protocol Donepezil HCl 5 mg 07/30/19 14:00 07/30/19 18:39 Aricept PO Not Given DAILY [facility] Epoetin Jone 10,000 unit 07/30/19 08:27 Procrit SUB-Q KEIRY PRN hemodialysis Heparin Sodium (Porcine) 5,000 unit 07/29/19 14:00 07/31/19 06:16 Heparin SUB-Q Not Given Q8HR [facility] Sodium Chloride 100 mls @ 999 mls/hr 07/30/19 08:27 Nacl 0.9% IV KEIRY PRN Hypotension Insulin Human Lispro 0 unit 07/29/19 07:30 07/30/19 21:52 Humalog SUB-Q Not Given ACHS [facility] Protocol Levothyroxine Sodium 100 mcg 07/31/19 06:00 07/31/19 06:16 Synthroid PO Not Given DAILY@0600 [facility] Magnesium Hydroxide 30 ml 07/28/19 22:11 Milk Of Magnesia PO Q4H PRN Constipation Melatonin 5 mg 07/30/19 22:00 07/30/19 21:53 Melatonin PO Not Given QHS [facility] Memantine 5 mg 07/30/19 14:00 07/30/19 18:40 Memantine PO Not Given DAILY [facility] Midodrine 10 mg 07/30/19 16:00 07/30/19 18:40 Proamatine PO Not Given TID@0800,1200,1600 [facility] Ondansetron HCl 4 mg 07/28/19 22:11 Zofran IV Q8H PRN Nausea And Vomiting Sodium Chloride 10 ml 07/29/19 10:00 07/30/19 21:53 Sodium Chloride Flush Syringe 10 Ml IV Not Given BID FAUZIA Sodium Chloride 10 ml 07/28/19 22:11 Sodium Chloride Flush Syringe 10 Ml IV PRN PRN LINE FLUSH
[2019-07-31] MEDS: INSULIN LISPRO 100 UNIT/ML SUB-Q SCH ×2 (09:26→11:50)
[2019-07-31] MEDS: ASCORBIC ACID 250 MG TAB PO SCH ×2 (09:30→09:38)
[2019-07-31] MEDS: MIDODRINE 5 MG TAB PO SCH ×2 (09:30→09:36)
[2019-07-31] MEDS: MEMANTINE 5 MG TAB PO SCH ×2 (09:30→09:59)
[2019-07-31] MEDS: DONEPEZIL 5 MG TAB PO SCH ×2 (09:37→09:41)
[2019-07-31] MEDS ORDERED: NON-FORMULARY EACH (Levothyroxine 100 MCG) PO SCH (10:00)
[2019-07-31] MEDS ORDERED: MORPHINE 2 MG/1 ML INJ IV PRN (10:18)
--- NOTE | 2019-07-31 10:25 | Discharge Summary ---
Providers - Providers Date of Admission: 07/28/19 21:38 Date of discharge: 07/31/19 Attending physician: TARA GUTIERRES 07/28/19 21:33 Consult to Physician [CONS] Stat Comment: Consulting Provider: ANN SAAVEDRA Physician Instructions: Reason For Exam: End-stage renal disease needing dialysis 07/28/19 22:12 Consult to Dietitian/Nutrition [CONS] Routine Physician Instructions: Reason For Exam: Reason for Consult: Diet education 07/30/19 11:52 Consult to Case Management [CONS] Routine Services Needed at Discharge: Other Notified:: cm Additional Physician Instructions: need hospice Primary care physician: AREA CAPTAIN Hospitalization Condition: Stable Hospital course: The patient is an 79 YO female with history significant for DM type 2, Hypotension on Midodrine, Hypothyroid, Dementia and ESRD on hemodialysis (TTS schedule) reportedly dialyzed at [facility] in [place], who [facility] after she has missed her dialysis for about a week. Patient is a very poor historian b/o her underlying dementiavand unable to obtain any histor. CXR in ER showed mild increase in interstitial markings. BP this morning is 90/35. Nephrology was consulted for management of ESRD. But patient during her hospitalization refused all her medications removed her surveillance system monitor, she also even refused her dialysis. I discussed with the daughter personally by phone and recommended hospice for the patient as she is severely demented and refusal treatment. The daughter was agreeable with the recommendation and wanted to proceed with hospice. manager engagement was consulted and patient was discharged to inpatient hospice in stable condition. 07/28: mental status improved, plan for Hd tomorrow per renal. called next of her kin no answer 07/29: patient refusing meds, removed tele monitor. discussed with daughter about hospice, she wants to consider the option. Consulted hospice - will cont to follow. Plan for Hd today but again she refused to get HD after taking her for dialysis. 07/30: Patient accepted to inpatient hospice, discharged to hospice in stable condition. Discharge diagnosis: --AMS/syncope likely Secondary to hypotension and missing HD Patient now alert and awake but remains confused because of underlying dementia -- ESRD (end stage renal disease) Patient has missed her dialysis for about a week. Nephrology consulted but she again refused dialysis --Hypotension: chorinc Continue Midodrin, hold antihypertensives --Noncompliance with hemodialysis, likely due to dementia --History of hypertension; Currently hypotensive , Hold antihypertensives --Dementia; Continue memantine and Aricept Supportive care --Type II diabetes mellitus. Accu-Chek sliding scale coverage ADA diet Insulin as needed --Hypothyroidism, continue Synthroid --DVT prophylaxis Patient placed on subcutaneous heparin. Disposition: Inpatient hospice Physical exam: General appearance: well-developed, appears stated age, other (no distress) EENT: ATNC, PERRL, mucous membranes dry Neck: Present: neck supple, trachea midline Respiratory: Clear to Ascultation Heart: regular, S1S2, no murmurs Gastrointestinal: Present: normoactive bowel sounds. Absent: tenderness, distended Integumentary: no rash, warm and dry Neurologic: Not oriented to place or time time. Moves all extremities, no focal neurological deficit musculoskeletal: Present: other (no edema, L arm AVF) Disposition: [facility] ([facility]) Time spent for discharge: 34 minutes Core Measure Documentation - Palliative Care Palliative Care/ Comfort Measures: Hospice Care - Core Measures Any of the following diagnoses?: history only Exam - Constitutional Vitals: Temp Pulse Resp BP Pulse Ox 97.7 F 101 H 16 91/39 96 07/30/19 22:14 07/30/19 22:14 07/30/19 22:14 07/30/19 22:14 07/30/19 22:14 Plan Activity: advance as tolerated Weight Bearing Status: Weight Bear as Tolerated Diet: renal Follow up with: PRIMARY MD KATHRINE [Primary Care Provider] - 3-5 Days
[2019-07-31 10:38] LABS: Calcium 7.3 mg/dL (8.4-10.2)
[2019-07-31] MEDS ORDERED: MORPHINE 2 MG/1 ML INJ IV ONE (11:00)
[2019-07-31] MEDS ORDERED: MORPHINE 2 MG/1 ML INJ IM ONE (11:23)
[2019-07-31 12:03] VITALS: BP 110/60
== END 2019-07-31 12:33 | disposition hospice, inpatient (51) | DRG 291 ==
LOC: ED 19:19 → 3A 21:38
PROVIDERS: ADMIT Internal Medicine Geriatric Medicine; ATTEND Internal Medicine
DX: I13.2 Hypertensive heart and chronic kidney disease with heart failure and with stage 5 chronic kidney disease, or end stage renal disease (principal); N18.6 End stage renal disease; I95.9 Hypotension, unspecified; E11.22 Type 2 diabetes mellitus with diabetic chronic kidney disease; E03.9 Hypothyroidism, unspecified; F03.90 Unspecified dementia, unspecified severity, without behavioral disturbance, psychotic disturbance, mood disturbance, and anxiety; I50.9 Heart failure, unspecified; D64.9 Anemia, unspecified; Z91.14 Patient's other noncompliance with medication regimen; Z99.2 Dependence on renal dialysis; Z91.15 Patient's noncompliance with renal dialysis; Z88.0 Allergy status to penicillin; Z79.899 Other long term (current) drug therapy
CPT/HCPCS: 36415; 71045; 80048; 80061; 80076; 82140; 82550; 82962; 84484; 85025; 85610; 85730; 93005; G0378; J0885; J2060; J2270; J7040